=== PATIENT | female | born 1960 | race Caucasian/White ===

== ENCOUNTER 2020-07-10 22:15 | Emergency (ER) | payer OTHER ==
[~2020-07-10] VITALS: Ht 154.9 cm; Wt 47.6 kg
[~2020-07-10 22:15] MED LIST: ASPIRIN81 M2 PO; FLEXERIL PO; IBUPROFEN 600600 M1 PO; IBUPROFEN 800800 MG PO; NOHOMEMEDICATIONS; NORCO 5-325 TA1 EACH PO; TOBRAMYCIN SULFA5 ML IO; ULTRAM 50MG TAB50 MG PO
[2020-07-10 23:11] VITALS: BP 107/61
[2020-07-11] MEDS ORDERED: NORCO5 PO (00:18)
[2020-07-11] MEDS ORDERED: NORFLEX100 MG PO (00:18)
== END 2020-07-11 00:40 | disposition home or self-care (01) ==
LOC: ER 22:15
DX: G89.29 Other chronic pain (principal); M54.5 Low back pain; M54.16 Radiculopathy, lumbar region; Z79.82 Long term (current) use of aspirin; Z79.899 Other long term (current) drug therapy; Z88.8 Allergy status to other drugs, medicaments and biological substances